=== PATIENT | female | born 1940 | race Caucasian/White ===

== ENCOUNTER 2019-09-05 16:51 | Inpatient (IN) | payer MEDICARE, SELFPAY ==
--- NOTE | ~2019-09-05 | XR_ITS ---
EXAMINATION: XR hip LT min 3V w AP pelvis DATE: 09/05/2019 17:37 INDICATION: Left hip pain. Fall. TECHNIQUE: An anteroposterior view of the pelvis and 3 views of left hip were obtained. COMPARISON: Pelvis and left hip radiographs 05/24/2019 FINDINGS: There is a subcapital fracture of left femoral neck. The distal fracture fragment demonstra tomer impaction and 6 degrees valgus angulation. There is mild osteoarthritis of the hips. There is mod erate lumbar spondylosis. IMPRESSION: 1. Subcapital fracture of left femoral neck. 2. Mild osteoarthritis of the hips. Reviewed, dictated and finalized at location A.
--- NOTE | ~2019-09-05 | XR_ITS ---
EXAMINATION: XR chest 1V portable DATE: 09/05/2019 17:37 INDICATION: Fall. TECHNIQUE: A single frontal view of the chest was obtained. COMPARISON: Chest 2 views 05/24/2019 FINDINGS: There is mild atelectasis at the lung bases. No pleural effusion or pneumothorax. The heart size is normal. IMPRESSION: 1. Mild atelectasis at the lung bases. Reviewed, dictated and finalized at location A.
--- NOTE | ~2019-09-05 | CT_ITS ---
EXAMINATION: CT brain wo con DATE: 09/05/2019 17:29 INDICATION: Fall. TECHNIQUE: Computed tomography (CT) of the head was performed without intravenous contrast. The mA wa s adjusted according to patient size. Iterative reconstruction technique was employed. The dose-lengt h product was 605.33 mGy-cm. COMPARISON: Head CT 05/24/2019 FINDINGS: There are scattered areas of low attenuation in the cerebral white matter. There are old in farcts in the left parietal lobe. There is an old lacunar infarct in the left basal ganglia. There is no intracranial hemorrhage, acute infarction, or abnormal intracranial mass lesion. The ventricles a re normal in size. There are likely changes of ocular lens replacement surgeries. There is mild mucos al thickening in the ethmoid sinuses. There is a left otomastoid effusion. IMPRESSION: 1. 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 2. Unchanged moderate nonspecific cerebral white matter disease, which likely represents chronic smal l vessel ischemic disease. Reviewed, dictated and finalized at location A. IMPRESSION: 1. 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 2. Unchanged moderate nonspecific cerebral white matter disease, which likely r epresents chronic small vessel ischemic disease.
[2019-09-05 16:57] VITALS: BP 154/92; PULSE 76; RESP 16; TEMP 37.2; O2SAT 97
--- NOTE | 2019-09-05 17:09 | ED.GENADULT ---
HPI - General Adult General Chief complaint: Extremity Injury, Lower Stated complaint: HIP FX Time Seen by Provider: 09/05/19 16:59 Source: patient Mode of arrival: ambulatory Limitations: no limitations History of Present Illness HPI narrative: Patient is a 78-year-old female who presents to emergency department for evaluation of left hip fracture that was found on imaging patient had a ground-level fall that was reportedly witnessed patient was helping an individual and fell backwards patient reportedly did not hit the head. Patient with unsteady gait was sent and after found to have a hip fracture. Patient on arrival is in the room in no distress denying any pain but is a limited historian secondary to dementia Related Data Home Medications Medication Instructions Recorded Confirmed alprazolam 09/05/19 cholecalciferol (vitamin D3) 1,000 unit PO DAILY 09/05/19 09/05/19 [Vitamin D3] escitalopram oxalate mg 09/05/19 galantamine mg PO 09/05/19 losartan 09/05/19 omega [id number]-fish oil [Fish Oil] cap PO 09/05/19 quetiapine 09/05/19 Allergies Allergy/AdvReac Type Severity Reaction Status Date / Time morphine Allergy Unknown Verified 10/26/18 14:46 prednisone Allergy Unknown Verified 10/09/15 08:34 Sulfa (Sulfonamide Allergy Unknown Verified 10/09/15 08:34 Antibiotics) Review of Systems Review of Systems: Narrative: Limited secondary to clinical condition PMFSH Past Medical History Medical History BCC (basal cell carcinoma of skin) Dementia HLD (hyperlipidemia) HTN (hypertension) Ovarian cancer Rectal polyp UTI (urinary tract infection) Surgical History Surgical History H/O: hysterectomy Hx of cholecystectomy Hx of tonsillectomy Family History Family History (Updated 09/19/18 @ 12:11 by DOCTOR UNKNOWN) Mother Carcinoma of colon Family history of lung cancer Father Family history of heart disease in male family member before age 55 Grandparent Family history of heart disease in male family member before age 55 Other Family history of cardiovascular disease Family history of malignant neoplasm Family history of malignant neoplasm of thyroid Hypertension Social History Social History Smoking status: Never smoker Second hand tobacco smoke exposure: No Alcohol intake: never Gender identity (if verbalized by the patient): Female Exam Narrative: Exam Narrative: GENERAL: Well-appearing, well-nourished, and in no acute distress. HEAD: Normocephalic, atraumatic. EYES: PERRLA and EOMI. ENT: Nares clear, no rhinorrhea or epistaxis. Mucous membranes moist. CHEST: Clear to auscultation. No respiratory distress. No wheezes rales or rhonchi HEART: Regular rate and rhythm. No murmur heard. Normal peripheral pulses. ABDOMEN: Soft, nontender, nondistended EXTREMITIES: Pelvis palpated nontender stable SKIN: Warm, dry, no rash. NEURO: No focal deficits. Alert and oriented to person and reason for being in the emergency department PSYCH: Normal mood and affect. Course Course Emergency Course: Patient in the room aware of case findings treatment plan and diagnosis Consultations Consultation #1: Discussed case with hospitalist and orthopedic surgery who have accepted the patient Time: 18:45 Vital Signs Vital signs: Vital Signs Temperature 99.0 F 09/05/19 16:57 Pulse Rate 76 09/05/19 16:57 Respiratory Rate 16 09/05/19 16:57 Blood Pressure 154/92 H 09/05/19 16:57 Pulse Oximetry 97 09/05/19 16:57 Temperature 99.0 F 09/05/19 16:57 Pulse Rate 76 09/05/19 16:57 Respiratory Rate 16 09/05/19 16:57 Blood Pressure 154/92 H 09/05/19 16:57 Pulse Oximetry 97 09/05/19 16:57 Medical Decision Making MDM Narrative Medical decision making narrative: Patient will be placed in h
[2019-09-05 17:21] LABS: Basophils Percent Auto 0.3 % (0.2-1.2); Eosinophils Absolute Auto 0.4 K/mm3 (0-0.3); Eosinophils Percent Auto 3.7 % (0-4.4); Hematocrit 39.3 % (37.0-47.0); Hemoglobin 12.8 g/dL (12.0-15.0); Immature Granulocyte Absolute 0.02 K/mm3 (0.00-0.031); Immature Granulocyte Percent A 0.2 % (0-0.5); Immature Platelet Fraction Pct 4.4 % (0.9-11.2); Lymphocytes Absolute Auto 1.44 K/mm3 (0.9-3.2); Lymphocytes Percent Auto 14.2 % (18.3-44.2); Mean Corpuscular HGB Conc 32.6 g/dl (32-36); Mean Corpuscular Hemoglobin 30.9 pg (26-34); Mean Corpuscular Volume 94.9 fl (80-100); Mean Platelet Volume 10.9 fl (7.4-10.4); Monocytes Absolute Auto 1.4 K/mm3 (0.1-0.6); Monocytes Percent Auto 13.4 % (2.6-8.5); Neutrophils Absolute Auto 6.9 K/mm3 (1.3-6.7); Neutrophils Percent Auto 68.2 % (45.5-73.1); Platelet Count Result 106 k/mm3 (150-375); Red Blood Count 4.14 M/mm3 (4.2-5.4); Red Cell Distribution Width 12.6 % (11.5-14.5); White Blood Count 10.1 K/mm3 (4.5-10.0)
[2019-09-05 17:30] LABS: Blood Urea Nitrogen 17 mg/dL (7-17); Calcium 9.4 mg/dL (8.4-10.2); Carbon Dioxide 28 mmol/L (22-30); Chloride 105 mmol/L (98-107); Estimated Glomerular Filt Rate > 60; Glucose 104 mg/dL (65-105); Sodium 136 mmol/L (137-145)
[2019-09-05] MEDS: SODIUM CHLORIDE 0.9% IV 500 ML 999 ML IV CONT (17:40)
[2019-09-05 18:04] LABS: Add Urine Microscopic? YES; Appearance Urine Clear (Clear); Bilirubin Urine Negative (Negative); Blood Urine Negative (Negative); Color Urine Straw (Yellow); Glucose Urine UA Negative (Negative); Ketones Urine Negative (Negative); Leukocyte Esterase Ur Negative LEU/UL (Negative); Nitrate Urine Negative (Negative); Protein Urine Negative (Negative); RBC Urine 0-2 /hpf (0-2); Specific Grav Ur 1.009 (1.001-1.035); Squamous Epithelial Cell Urine Rare /hpf (Few); WBC Urine 0-3 /hpf
[2019-09-05 18:23] VITALS: BP 156/71; PULSE 65; RESP 18; O2SAT 93
--- NOTE | 2019-09-05 18:57 | PC.NURSE ---
PT BECOMING AGITATED AND RESTLESS. TRYING TO GET OUT OF BED AND PULLING AT GOWN AND BLANKETS. TRYING TO REORIENT PATIENT. SON AT BEDSIDE.
--- NOTE | 2019-09-05 19:00 | PC.NURSE ---
PROVIDER AND CHARGE NURSE MADE AWARE OF PATIENT ORIENTATION STATUS.
--- NOTE | 2019-09-05 20:30 | ADMGEN ---
This patient, Lala Lopez, was admitted to [facility] Surg Room 307-01. Patient/family oriented to hospital policies and general routines including ID bracelet, bed and alarms, visiting hours, pain management, procedures, bathroom and other care routines, personal items, smoking policy, room service/diet, and visiting hours. Valuables list has been completed. Information on how to activate the Rapid Response Team has been discussed. Patient/Family are encouraged to report perceived risks to care and to ask questions if they do not understand what they are told or what they should do.
[2019-09-05 20:35] VITALS: BP 135/68; PULSE 56; RESP 18; TEMP 36.9; O2SAT 96; BMI 28.8
[2019-09-05] MEDS: LACTATED RINGERS 1,000 ML 75 ML IV CONT (20:39)
--- NOTE | 2019-09-05 21:58 | PM.IMHP ---
H&P: HPI History of Present Illness Chief complaint: LEFT HIP FRACTURE Narrative: Date and time of patient contact: 09/05/2019 at 10:10 p.m. Lala Lopez is a 78 year old female with past medical history of hypertension and dementia who presented to the ER from [facility] after an outpatient x-ray demonstrated. The patient had an unwitnessed fall on 09/04/2019. The patient had been up and ambulating without difficulty but intermediate staff noted that the patient's gait was unsteady at which time an x-ray was obtained. Patient was subsequently sent into the ER for evaluation she had a chest x-ray demonstrated atelectasis at the bases, CT scan of the head demonstrating old infarcts in the left parietal lobe and left basal ganglia, and a repeat pelvis x-ray confirming subcapital fracture left femoral neck. The patient cannot provide me with any history she is only alert oriented to self. She opens her eyes to name and will stick her tongue out and told to do so. She will follow simple commands. She would not speak to me much. Review of Systems Review of Systems: ROS unobtainable: unobtainable due to mental status PMFSH Past Medical History Medical History (Updated 09/06/19 @ 03:51 by Brittaney Mann DO) BCC (basal cell carcinoma of skin) Dementia HLD (hyperlipidemia) HTN (hypertension) Ovarian cancer 2000 status post hysterectomy with bilateral salpingo-oophorectomy and chemotherapy UTI (urinary tract infection) Surgical History Surgical History (Updated 09/05/19 @ 22:07 by Brittaney Mann DO) Enterostomy To retrieve gallstone that was causing small bowel obstruction March 2011 History of hysterectomy for cancer Due to ovarian cancer in 2000 Hx of cholecystectomy Hx of tonsillectomy Normal colonoscopy The patient had a distant history of colon polyps but her most recent colonoscopy in 2014 was unremarkable Family History Family History (Updated 09/05/19 @ 22:46 by Carol Ann Goetz RN) Mother Lung cancer Carcinoma of colon Father Heart disease Hypertension Daughter Thyroid cancer Social History Social History (Updated 09/06/19 @ 03:52 by Brittaney Mann DO) Social History: Primary care physician: Dr. Eliot Reeves (per intermediate records) Code status: DNR Smoking status: Never smoker Second hand tobacco smoke exposure: No Alcohol intake: never Substance use: never Living arrangements: intermediate Additional living arrangements comments: Patient resides at [facility]. She is . 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 Gender identity (if verbalized by the patient): Female Spiritual care concerns: No Agree to blood products: Yes Meds Home Medications and Allergies Home Medications Medication Instructions Recorded Confirmed Type alprazolam 0.5 mg PO Q6H PRN 09/05/19 09/05/19 History cholecalciferol (vitamin D3) 1,000 unit PO DAILY 09/05/19 09/05/19 History [Vitamin D3] escitalopram oxalate 20 mg PO DAILY 09/05/19 09/05/19 History galantamine 24 mg PO DAILY 09/05/19 09/05/19 History losartan 50 mg PO DAILY 09/05/19 09/05/19 History omega-3 fatty acids-fish oil [Fish 2 cap PO DAILY 09/05/19 09/05/19 History Oil] Allergies Allergy/AdvReac Type Severity Reaction Status Date / Time morphine AdvReac Intermediate Agitated Verified 09/05/19 22:17 Vital Signs Vital Signs - 24 hr 09/05/19 16:57 09/05/19 18:23 09/05/19 20:35 Temperature 99.0 F 98.4 F Pulse Rate 76 65 56 L Respiratory Rate 16 18 18 Blood Pressure 154/92 H 156/71 H 135/68 Pulse Oximetry 97 93 96 Exam Narrative: Exam Narrative: PHYSICAL EXAM: WEIGHT 71.5 kg BMI 28.8 General: No acute distress, well-developed well-nourished, elderly HEENT: Mucous membranes are tacky, no oral pharyngeal erythema, no s
[2019-09-06] VITALS: BP 152/69; PULSE 67; RESP 18; TEMP 36.8; O2SAT 96
--- NOTE | 2019-09-06 | ECG_ITS ---
Measurements Intervals [employer] Rate: 61 P: 60 MI: 133 QRS: 14 QRSD: 91 T: 62 QT: 413 QTc: 419 Interpretive Statements SINUS RHYTHM VENTRICULAR TRIGEMINY ABNORMAL ECG Electronically Signed On 09-06-2019 9:16:33 CDT by Allen Perez D.O.
[2019-09-06 06:00] VITALS: BP 127/77; PULSE 60; RESP 18; TEMP 36.7; O2SAT 95
[2019-09-06 06:03] LABS: Basophils Percent Auto 0.4 % (0.2-1.2); Eosinophils Absolute Auto 0.3 K/mm3 (0-0.3); Eosinophils Percent Auto 4.7 % (0-4.4); Hematocrit 38.3 % (37.0-47.0); Hemoglobin 12.6 g/dL (12.0-15.0); Immature Granulocyte Absolute 0.02 K/mm3 (0.00-0.031); Immature Granulocyte Percent A 0.3 % (0-0.5); Immature Platelet Fraction Pct 4.7 % (0.9-11.2); Lymphocytes Absolute Auto 1.15 K/mm3 (0.9-3.2); Lymphocytes Percent Auto 15.8 % (18.3-44.2); Mean Corpuscular HGB Conc 32.9 g/dl (32-36); Mean Corpuscular Hemoglobin 31.2 pg (26-34); Mean Corpuscular Volume 94.8 fl (80-100); Mean Platelet Volume 10.9 fl (7.4-10.4); Monocytes Percent Auto 13.8 % (2.6-8.5); Neutrophils Absolute Auto 4.7 K/mm3 (1.3-6.7); Platelet Count Result 97 k/mm3 (150-375); Red Blood Count 4.04 M/mm3 (4.2-5.4); Red Cell Distribution Width 12.3 % (11.5-14.5); White Blood Count 7.3 K/mm3 (4.5-10.0)
[2019-09-06 06:04] LABS: Blood Urea Nitrogen 12 mg/dL (7-17); Calcium 8.9 mg/dL (8.4-10.2); Carbon Dioxide 27 mmol/L (22-30); Chloride 109 mmol/L (98-107); Estimated CRCL calculation 47 ml/min; Estimated Glomerular Filt Rate > 60; Glucose 103 mg/dL (65-105); Potassium 3.7 mmol/L (3.4-5.0); Sodium 138 mmol/L (137-145)
--- NOTE | 2019-09-06 08:14 | PM.IMPN ---
Progress Note: A&P Assessment and Plan (1) Subcapital fracture of neck of left femur: Code(s): S72.012A - Unspecified intracapsular fracture of left femur, initial encounter for closed fracture Status: Acute Assessment and Plan: Patient does not have many risk factors as far as risk for cardiovascular complications other than HTN and HLD. However, given her moderate-severe dementia and that the patient continuously tries to get out of bed, this will make the postoperative interval a challenge. Daughter confirms that even when she had a fractured radius last year, she had a difficult time following direction and keeping arm in sling Dr. Thomas is consulted and input is much appreciated Will await further rec per Dr. Thomas (2) Bradycardia: Code(s): R00.1 - Bradycardia, unspecified Status: Acute Assessment and Plan: Given that the patient is on medications that can cause QT prolongation she has some mild bradycardia, EKG will be done today. Previous EKG done in 05/2019 shows normal EKG with QTc of 428 EKG to be done today Subjective Date/time seen: 09/06/19 08:14 Interval history: Patient is a 78 yo F with history of HLD, HTN, ovarian cancer and dementia (mod-severe per patient's daughter/HASEEBJada) who is here for evaluation/treatment of left hip fracture. Patient is pleasantly confused this morning and not complaining of any pain. She is A&Ox2 but primarily gives nonsensical answers. ROS and History unobtainable due to chronic mental condition. Spoke with patient's daughter/POA, Jada, over the phone this morning who states that this is baseline for her. She confirms she had an unwitnessed fall while at [facility]. She tells me that she had a fall last year and injured her right arm at that time and had a difficult time keeping her arm immobilized/slinged. When the patient is questioned, she denies cp/palpitations, fevers, sob/cough, abdominal pain, hip pain, although again, her history is unreliable given her dementia. Review of Systems Review of Systems: ROS unobtainable: unobtainable due to mental status (baseline dementia) Exam Narrative: Exam Narrative: Patient sitting upright in bed at time of visit; sitter in room Const: General: cooperative, comfortable, no acute distress, well developed, alert, awake and confusion (pleasantly) Nutritional Appearance: well nourished Orientation/consciousness: oriented to person and oriented to place (hospital) HENMT: Head: normocephalic and atraumatic (scabbing noted on left temporal region of head, slight ecchymosis) General nose exam: Normal nares present Face and sinus: face symmetric Mouth: No lip normal (dry, crusting skin on lips) and Yes tongue normal (moist, symmetric) Teeth and gingiva: fair dentition Throat: posterior oropharynx normal and uvula midline Eyes: General: appearance normal, both eyes and all related structures Pupils: Equal, round and reactive pupils present Neck: Neck: trachea midline and supple Resp: Effort & Inspection: normal respiratory effort Auscultation: clear to auscultation bilaterally Cardio: Rate: regular rate Rhythm: regular rhythm Heart sounds: no murmurs GI: Inspection: non-distended and scar (midline scar noted proximal to umbilicus to suprpubic area) GI Palp: No abdominal tenderness and Yes Soft to palpation Auscultation: normal bowel sounds and normoactive bowel sounds Skin: General skin exam: normal color Other: various locations of scabbing noted on skin of UE/LE Neuro: General: oriented to person, oriented to place (hospital), moves all extremities and no focal motor deficits Sensory Exam: normal sensation Extrem: Right lower extremity: no edema Left lower extremity: no edema Other: NTTP b/l calves Slight ecchymosis noted on left hip; slight TTP Psych: Mental Status: mental status grossly normal Affect: n
[2019-09-06] MEDS: ESCITALOPRAM OXALATE 10 MG TABLET 20 MG PO (09:32)
[2019-09-06] MEDS: LOSARTAN POTASSIUM 50 MG TABLET PO (09:33)
[2019-09-06] MEDS: LACTATED RINGERS 1,000 ML 75 ML IV CONT (09:39)
[2019-09-06] MEDS: ALPRAZOLAM 0.5 MG TABLET PO (12:51)
--- NOTE | 2019-09-06 13:18 | PM.CNOR ---
Assessment and Plan Assessment and plan (1) Subcapital fracture of neck of left femur: Qualifiers: Encounter type: initial encounter Fracture type: closed Qualified Code(s): S72.012A - Unspecified intracapsular fracture of left femur, initial encounter for closed fracture Code(s): S72.012A - Unspecified intracapsular fracture of left femur, initial encounter for closed fracture Status: Acute Assessment and Plan: 78-year-old female with an acute left subcapital femoral neck fracture. Over the course of the past year she has had dramatic decrease in her cognitive capabilities according to her daughter and son. After discussing the overall situation with them I believe the most prudent course at this point is going to be non operative treatment with protected weight-bearing. This pain is essentially no weight on the left leg and transfers only on the right foot. Some therapy could be done with her upper extremities. I will plan on re-x-ray the left hip in one week with a mobile x-ray service and then make further recommendations at that point. The patient's daughter and son are in agreement with this approach. Thank you for the consultation. History of Present Illness HPI Consult date: 09/06/19 Consult reason: fracture Chief complaint: LEFT HIP FRACTURE Narrative: 78-year-old female who was admitted with a left subcapital femoral neck fracture. She resides at a memory care unit in [place], [place]. She apparently had an unwitnessed fall within the past couple of days and was unable walk. X-ray was obtained there which demonstrated femoral neck fracture. She was brought to the ER and re-x-rayed here confirming the fracture. She is confused to the point of being able to provide no reasonable history. I did speak with her daughter and son earlier today. Her daughter is her POA. [facility] Past Medical History Medical History BCC (basal cell carcinoma of skin) Dementia HLD (hyperlipidemia) HTN (hypertension) Ovarian cancer 2000 status post hysterectomy with bilateral salpingo-oophorectomy and chemotherapy Right radial fracture UTI (urinary tract infection) Surgical History Surgical History Enterostomy To retrieve gallstone that was causing small bowel obstruction March 2011 History of hysterectomy for cancer Due to ovarian cancer in 2000 Hx of cholecystectomy Hx of tonsillectomy Normal colonoscopy The patient had a distant history of colon polyps but her most recent colonoscopy in 2014 was unremarkable Family History Family History Mother Lung cancer Carcinoma of colon Father Heart disease Hypertension Daughter Thyroid cancer Social History Social History Social History: Primary care physician: Dr. Eliot Reeves (per senior living records) Code status: DNR Smoking status: Never smoker Second hand tobacco smoke exposure: No Alcohol intake: never Substance use: never Living arrangements: senior living Additional living arrangements comments: Patient resides at [facility]. She is . 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 Gender identity (if verbalized by the patient): Female Spiritual care concerns: No Agree to blood products: Yes Meds Home Medications and Allergies Home Medications Medication Instructions Recorded Confirmed Type alprazolam 0.5 mg PO Q6H PRN 09/05/19 09/05/19 History cholecalciferol (vitamin D3) 1,000 unit PO DAILY 09/05/19 09/05/19 History [Vitamin D3] escitalopram oxalate 20 mg PO DAILY 09/05/19 09/05/19 History galantamine 24 mg PO DAILY 09/05/19 09/05/19 History losartan 50 mg PO DAILY
[2019-09-06 14:00] VITALS: BP 119/67; PULSE 98; RESP 20; TEMP 37; O2SAT 97
--- NOTE | 2019-09-06 14:29 | PM.DS ---
DS: Diagnosis Admitting Diagnosis Admitting Diagnosis: Unspecified intracapsular fracture of left femur, initial encounter for closed fracture Discharge Diagnosis (1) Subcapital fracture of neck of left femur: Qualifiers: Encounter type: initial encounter Fracture type: closed Qualified Code(s): S72.012A - Unspecified intracapsular fracture of left femur, initial encounter for closed fracture Code(s): S72.012A - Unspecified intracapsular fracture of left femur, initial encounter for closed fracture Status: Acute Assessment and Plan: Patient does not have many risk factors as far as risk for cardiovascular complications other than HTN and HLD. However, given her moderate-severe dementia and that the patient continuously tries to get out of bed, this will make the postoperative interval a challenge. Daughter confirms that even when she had a fractured radius last year, she had a difficult time following direction and keeping arm in sling Dr. Thomas is consulted and input is much appreciated Per Dr. Thomas, no surgery at this point; conservative treatment for now She will have xray in 1 week Will do 325 mg Aspirin daily for DVT prophylaxis as patient high fall risk for falls for anticoagulation (2) Bradycardia: Code(s): R00.1 - Bradycardia, unspecified Status: Acute Assessment and Plan: EKG shows ventricular trigeminy, sinus rhythm with QTc 419 DS: Summary Hospital Course Reason for hospitalization: left hip fracture Hospital Course: Patient is a 78 yo F with history of HTN and dementia who presented to the ER from [facility] on 09/04 after an outpatient xray demonstrated a left hip fracture. Patient had an unwitnessed fall on 09/03. Patient had ambulated without difficulty, however, staff noted that her gait was unstady and an xray was obtained. Patient subsequently sent to ER where repeat pelvis xray confirmed left hip fracture. Please see H&P Presenting VS: Temp Pulse Resp BP Pulse Ox 99.0 F 76 16 154/92 H 97 on RA 09/05/19 16:57 09/05/19 16:57 09/05/19 16:57 09/05/19 16:57 09/05/19 16:57 Presenting Pertinent labs: Lab work grossly unremarkable Micro: MRSA screen negative Imaging: Head CT 09/05/19 17:32 IMPRESSION: 1. 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 2. Unchanged moderate nonspecific cerebral white matter disease, which likely represents chronic small vessel ischemic disease. Chest X-Ray 09/05/19 17:47 IMPRESSION: 1. Mild atelectasis at the lung bases. Hip/Pelvis X-Ray 09/05/19 17:48 IMPRESSION: 1. Subcapital fracture of left femoral neck. 2. Mild osteoarthritis of the hips. ECG: Interpretive Statements SINUS RHYTHM VENTRICULAR TRIGEMINY ABNORMAL ECG Patient was admitted to the hospitalist service for further evaluation for left hip fracture; Dr. Thomas ([facility]) was consulted for further input. After discussion with her daughter/POA and son, it was elected that patient would not be undergoing operative treatment and that conservative treatment with protected weight-bearing would be the best course of action given her dramatic decrease in her cognitive capabilities reported by her daughter and son; both were in agreement with this plan. It was apparent that her pain was reasonably controlled during her hospital course. Plan was for her to [facility] to [facility] for further care. She was to take 325 mg aspirin daily during recovery. Follow up xray was to be performed in 1 week and patient to follow up with Ortho. Patient was hemodynamically stable and in improved condition for discharge on 09/05. Status at Discharge Overall status at discharge: patient is progressing back to baseline Time Spent with Patient Time attestation: Total time spent providing and/or coordinating discharge services: 40 minutes Time spent: Shannon
== END 2019-09-06 16:00 | DRG 536 ==
LOC: ANHED 19:21 → ANH3MEDSUR 19:57
PROVIDERS: Emergency Medicine Emergency Medical Services; Admitting Provider Internal Medicine; Emergency Provider Emergency Medicine; PCP Internal Medicine; Visit Provider Physician Assistant
DX: S72.012A Unspecified intracapsular fracture of left femur, initial encounter for closed fracture (principal); W19.XXXA Unspecified fall, initial encounter; I10 Essential (primary) hypertension; E78.5 Hyperlipidemia, unspecified; F03.90 Unspecified dementia, unspecified severity, without behavioral disturbance, psychotic disturbance, mood disturbance, and anxiety; R00.1 Bradycardia, unspecified; Z66 Do not resuscitate; Z85.828 Personal history of other malignant neoplasm of skin; Z85.43 Personal history of malignant neoplasm of ovary; Z90.710 Acquired absence of both cervix and uterus; Z90.49 Acquired absence of other specified parts of digestive tract; Z90.722 Acquired absence of ovaries, bilateral
CPT/HCPCS: 36415; 70450; 71045; 73502; 80048; 81001; 85025; 85055; 87081; 93005; 96365; 99285; A9270; J0131; J7040; J7120

== ENCOUNTER 2020-05-13 11:48 | Outpatient (RCR) | payer MEDICARE, SELFPAY | END 2020-07-28 11:28 | disposition home or self-care (01) | LOC: ANHWOC 11:48 | PROVIDERS: PCP Internal Medicine; Visit Provider Podiatrist Foot & Ankle Surgery | DX: L97.519 Non-pressure chronic ulcer of other part of right foot with unspecified severity (principal) | CPT/HCPCS: 99212; G0463 ==

== ENCOUNTER 2020-05-18 04:47 | Emergency (ER) | payer MEDICARE, SELFPAY ==
[2020-05-18 04:40] VITALS: BP 204/79; PULSE 64; RESP 18; TEMP 36.2; O2SAT 99
[2020-05-18 04:50] VITALS: BP 181/72; PULSE 60; RESP 20; O2SAT 99
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
--- NOTE | 2020-05-18 04:56 | PC.NURSE ---
called [facility] to request transport. ETA [id number]
[2020-05-18 05:06] VITALS: BP 180/72; PULSE 60; RESP 18; O2SAT 98
--- NOTE | 2020-05-18 05:11 | PC.NURSE ---
[facility] here.
== END 2020-05-18 05:21 ==
LOC: ANHED 04:57
PROVIDERS: Emergency Provider Emergency Medicine; PCP Internal Medicine
DX: F03.91 Unspecified dementia, unspecified severity, with behavioral disturbance (principal); E78.5 Hyperlipidemia, unspecified; I10 Essential (primary) hypertension; Z66 Do not resuscitate; Z85.41 Personal history of malignant neoplasm of cervix uteri; Z85.828 Personal history of other malignant neoplasm of skin; Z87.440 Personal history of urinary (tract) infections
CPT/HCPCS: 99281

== ENCOUNTER → 2020-07-21 07:26 | Outpatient (REF) | payer MEDICARE, SELFPAY | LOC: ANHLAB 07:26 | PROVIDERS: PCP Internal Medicine; Visit Provider Nurse Practitioner | DX: C44.319 Basal cell carcinoma of skin of other parts of face (principal) | CPT/HCPCS: 88305; 88331 ==

== ENCOUNTER → 2020-09-29 06:55 | Outpatient (REF) | payer MEDICARE, SELFPAY | LOC: ANHLAB 06:55 | PROVIDERS: PCP Internal Medicine; Visit Provider Nurse Practitioner | DX: C44.319 Basal cell carcinoma of skin of other parts of face (principal) | CPT/HCPCS: 88305; 88331; 88332 ==

== ENCOUNTER 2021-07-27 14:18 | Emergency (ER) | payer MEDICARE, SELFPAY ==
--- NOTE | ~2021-07-27 | CT_ITS ---
EXAMINATION: CT brain wo con DATE: 07/27/2021 17:42 INDICATION: Confusion post fall TECHNIQUE: Computed tomography (CT) of the head was performed without intravenous contrast. Sagittal and coronal reconstructions were performed. The mA was adjusted according to patient size. Iterative reconstruction technique was employed. The dose-length product was 605.33 mGy-cm. COMPARISON: head CT dated 09/05/2019 FINDINGS: Hyperostosis from talus. No fracture. Assessment is moderately limited by motion artifact. Small focu s of encephalomalacia in the left parietal lobe consistent with old infarct. There is moderate to sev ere scattered white matter hypoattenuation consistent with chronic small vessel ischemic disease. No acute intracranial hemorrhage, acute infarction or abnormal extra axial fluid collection. Ventricles are normal and symmetric. No mass/mass effect. Changes of bilateral intraocular lens replacement. Ri ght mastoid is hypopneumatized. The left mastoid air cells are normal. The visualized portions of the paranasal sinuses are clear. IMPRESSION: 1. Evaluation moderately limited by motion artifact most prominent at the level of the orbits and mid brain. 2. No evident fracture or acute intracranial process. 3. 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 4. Age-related changes including moderate volume loss and moderate to severe scattered white matter h ypoattenuation consistent with chronic small vessel schema disease. Reviewed, dictated and finalized at location A. CAR MAKE READY MECHANIC IMPRESSION: 1. Evaluation moderately limited by motion artifact most prominent at the level of the orbits and midbrain. 2. No evident fracture or acute intracranial process. 3. 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 4. Age-related changes including moderate volume loss and moderate to severe sc attered white matter hypoattenuation consistent with chronic small vessel schem a disease.
--- NOTE | ~2021-07-27 | CT_ITS ---
EXAMINATION: CT thoracic lumbar wo con DATE: 07/27/2021 17:42 INDICATION: Back pain post fall TECHNIQUE: Computed tomography (CT) of the thoracic and lumbar spine was performed without intravenou s contrast. Automated exposure control and iterative reconstruction technique were employed. The dose -length product was 1382.08 mGy-cm. COMPARISON: CT abdomen and pelvis dated 03/10/2011 FINDINGS: Thoracic spine: Mild thoracic spondylosis. Vertebral body heights are normal. Multilevel moderate disc height loss a t C4-C5 through C6-C7 and at T3-T4 through T9-T10. Mild disc height loss at the remaining thoracic le vels. Small disc osteophyte complexes resulting in mild central canal stenosis at C5-C6 and C6-C7. No central canal stenosis and thoracic spine. There is mild to moderate multilevel bilateral thoracic f acet osteoarthritis which contributes to minimal to mild neural foraminal stenosis at a few levels in both the left and right greatest on the left at T6-T7. There is some respiratory motion which limits evaluation of the ribs. Nondisplaced acute appearing rib fractures are seen at the posterior right 8 th-11th ribs near the costovertebral articulations as well as at the posterolateral right 8th and 9th ribs. Scattered atelectasis in the bilateral lower lungs. Trace right pleural effusion. No pulmonary edema or pneumothorax. Heart size is normal. Atherosclerotic coronary artery calcifications. No pericardial effusion. Calcified mediastinal and right hilar lymph nodes consistent with old granulomatous diseas e. No pathologically enlarged thoracic lymphadenopathy. Thoracic aorta is normal in caliber. Lumbar spine: 10 degree lumbar dextroscoliosis. Sagittal alignment is normal. There is a small superior endplate co mpression fracture on the left side of L2 with <20% vertebral body height loss. Although new since 11 has a chronic appearance with no lucent fracture plane, discontinuous or sharply angulated cortex, linear sclerosis in the underlying vertebral body or inflammatory change in the paravertebral fat to suggest acute fracture. Vertebral body heights are otherwise normal. Lucent hemangioma with thickene d internal trabecula at L5. Severe disc height loss at L2-L3. Moderate disc height loss at L3-L4 and L5-S1. Mild disc height loss at L4-L5. There appear to be disc bulges at L2-L3 through L5-S1 result i n multilevel mild central canal stenosis. Severe facet osteoarthritis on the right at L5-S1. Otherwis e mild to moderate multilevel bilateral lumbar facet osteoarthritis. There is moderate bilateral neur al foraminal stenosis at L2-L3 through L5-S1. Mild neural from stenosis on the left at L1-L2. Liver, gallbladder, spleen, pancreas, bilateral adrenal glands and kidneys are normal. Moderate to la rge amount of stool scattered throughout the colon. Postoperative change along the anterior abdominal wall. There are loops of nonobstructed small bowel extending into a couple ventral hernias. Bladder is normal. The uterus is not identified and has likely been surgically resected. There is calcified a therosclerosis of the aorta and many of the other arteries. No pathologically enlarged abdominal or p elvic lymphadenopathy. IMPRESSION: 1. A few nondisplaced posterior right 8th-11th rib fractures. Trace right pleural effusion. No pneumo thorax. 2. Moderate thoracic and moderate to severe lumbar spondylosis. No acute osseous abnormality in the t horacic or lumbar spine. 3. Loops of nonobstructed small bowel extending into a couple ventral hernias. Reviewed, dictated and finalized at location A. PRESIDENT UNDERWRITING IMPRESSION: 1. A few nondisplaced posterior right 8th-11th rib fractures. Trace right pleur al effusion. No pneumothorax. 2. Moderate thoracic and moderate to severe lumbar spo
--- NOTE | ~2021-07-27 | XR_ITS ---
XR chest 1V portable DATE: 07/27/2021 15:28 INDICATION: Fall. Confusion. TECHNIQUE: Portable AP chest on July 27, 2021 at 1519 hours COMPARISON: 09/05/2019 portable AP chest at 1735 hours FINDINGS: Heart size appears normal. There is aortic arch calcification. No hilar or mediastinal enla rgement. No pulmonary infiltrate or consolidation, pleural effusion or pulmonary vascular congestion or pneumothorax is detected. IMPRESSION: No active cardiopulmonary disease Aortic atherosclerosis Reviewed, dictated and finalized at location B. DE SALES MANAGER
[2021-07-27 14:20] VITALS: PULSE 65; RESP 18; TEMP 36.3; O2SAT 95
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
[2021-07-27] MEDS: LORazepam INJ (*CRX) 2 MG/ML VIAL 0.5 MG IM (14:44)
[2021-07-27] MEDS: HALOPERIDOL LACTATE 5 MG/ML VIAL 2.5 MG IM ×2 (14:45→16:49)
[2021-07-27] MEDS: diphenhydrAMINE HCl INJ 50 MG/ML VIAL 25 MG IM (14:45)
[2021-07-27 14:58] VITALS: BP 160/103
--- NOTE | 2021-07-27 14:59 | PC.NURSE ---
Pt very restless, scared and wanting to get out of bed. Pt placed on bed alarm
[2021-07-27 16:21] LABS: Basophils Absolute Auto 0.1 K/mm3 (0.0-0.1); Basophils Percent Auto 0.5 % (0.2-1.2); Eosinophils Absolute Auto 0.3 K/mm3 (0-0.3); Eosinophils Percent Auto 2.6 % (0-4.4); Hematocrit 34.1 % (37.0-47.0); Immature Granulocyte Absolute 0.07 K/mm3 (0.00-0.031); Immature Granulocyte Percent A 0.6 % (0-0.5); Immature Platelet Fraction Pct 6.5 % (0.9-11.2); Lymphocytes Absolute Auto 1.53 K/mm3 (0.9-3.2); Lymphocytes Percent Auto 13.8 % (18.3-44.2); Mean Corpuscular HGB Conc 32.3 g/dl (32-36); Mean Corpuscular Hemoglobin 32.7 pg (26-34); Mean Corpuscular Volume 101.5 fl (80-100); Mean Platelet Volume 11.1 fl (7.4-10.4); Monocytes Absolute Auto 1.1 K/mm3 (0.1-0.6); Monocytes Percent Auto 9.8 % (2.6-8.5); Neutrophils Absolute Auto 8.1 K/mm3 (1.3-6.7); Neutrophils Percent Auto 72.7 % (45.5-73.1); Platelet Count Result 133 k/mm3 (150-375); Red Blood Count 3.36 M/mm3 (4.2-5.4); Red Cell Distribution Width 12.3 % (11.5-14.5); White Blood Count 11.1 K/mm3 (4.5-10.0)
[2021-07-27 16:30] LABS: Anion Gap 4 mmol/L (8-16); Blood Urea Nitrogen 27 mg/dL (7-17); Calcium 8.6 mg/dL (8.4-10.2); Carbon Dioxide 31 mmol/L (22-30); Chloride 103 mmol/L (98-107); Estimated CRCL calculation 40 ml/min; Estimated Glomerular Filt Rate > 60; Glucose 91 mg/dL (65-110); Potassium 4.3 mmol/L (3.4-5.0); Sodium 138 mmol/L (137-145)
[2021-07-27] MEDS: LORazepam INJ (*CRX) 2 MG/ML VIAL 1 MG IM (16:47)
[2021-07-27 16:53] VITALS: BP 143/84; PULSE 81; RESP 18; O2SAT 98
[2021-07-27 17:10] LABS: Add Urine Microscopic? YES; Appearance Urine Clear (Clear); Bilirubin Urine Negative (Negative); Blood Urine Negative (Negative); Color Urine Yellow (Yellow); Glucose Urine UA Negative (Negative); Ketones Urine Negative (Negative); Leukocyte Esterase Ur Negative LEU/UL (Negative); Mucus Urine Rare /lpf; Nitrate Urine Negative (Negative); Protein Urine Negative (Negative); RBC Urine >75 /hpf (0-2); Specific Grav Ur 1.013 (1.001-1.035); Squamous Epithelial Cell Urine Rare /hpf (Few); Urobilinogen Urine Negative mg/dL (<2.0); WBC Urine 0-3 /hpf
[2021-07-27 17:36] LABS: SARS-CoV-2 RNA PCR Negative
[2021-07-27 18:34] VITALS: BP 172/52; PULSE 77; RESP 26; O2SAT 99
== END 2021-07-27 19:15 ==
PROVIDERS: Emergency Medicine; Emergency Provider Emergency Medicine; PCP Nurse Practitioner Family
DX: R45.1 Restlessness and agitation (principal); R45.6 Violent behavior; S22.41XA Multiple fractures of ribs, right side, initial encounter for closed fracture; R29.6 Repeated falls; Z20.822 Contact with and (suspected) exposure to COVID-19; F03.90 Unspecified dementia, unspecified severity, without behavioral disturbance, psychotic disturbance, mood disturbance, and anxiety; E78.5 Hyperlipidemia, unspecified; I10 Essential (primary) hypertension; Z85.41 Personal history of malignant neoplasm of cervix uteri; Z85.828 Personal history of other malignant neoplasm of skin; Z87.440 Personal history of urinary (tract) infections; Z66 Do not resuscitate; I70.0 Atherosclerosis of aorta; M47.816 Spondylosis without myelopathy or radiculopathy, lumbar region; M47.814 Spondylosis without myelopathy or radiculopathy, thoracic region; W19.XXXA Unspecified fall, initial encounter
CPT/HCPCS: 36415; 70450; 71045; 72128; 72131; 80048; 81001; 85025; 85055; 96372; 99284; C9803; J1200; J1630; J2060; U0003; U0005

== ENCOUNTER 2021-08-08 21:43 | Emergency (ER) | payer MEDICARE, SELFPAY ==
--- NOTE | ~2021-08-08 | CT_ITS ---
EXAMINATION: CT chest abdomen pelvis w con DATE: 08/09/2021 06:59 INDICATION: Pain after fall, anemia TECHNIQUE: Transaxial computed tomographic images of the chest, abdomen, and pelvis were obtained aft er the administration of 100 cc of Omnipaque 350 intravenous contrast. The dose-length product (DLP) was 618.58 mGy-cm. Automated exposure control and iterative reconstruction technique were employed. COMPARISON: 03/10/2011, 07/27/2021 FINDINGS: CHEST CT: Respiratory motion artifact limits the examination. There is mild dependent atelectasis. Small pleura l effusions are present, right greater than left. There are fractures of the right sixth through nint h ribs. There are segmental fractures of the right eighth and ninth ribs. The sixth and seventh rib f ractures appear new when compared to the prior examination. There is no pneumothorax. No pathological ly enlarged thoracic lymph nodes are identified. The heart size is normal. There is an age-indetermin ate compression fracture of T8 which is new since the recent comparison examination. ABDOMEN/PELVIS CT: Motion artifact limits the examination. The liver, spleen, pancreas, gallbladder, and adrenal glands are normal. There is moderate intrahepatic and extrahepatic biliary dilatation. There is a mildly hyp erattenuating 1.3 cm mass of the medial left kidney which does not demonstrate enhancement when tita red to the recent noncontrast CT, consistent with a proteinaceous cyst. The right kidney is unremarka ble. A moderate volume of colonic stool is present. There is calcified atherosclerosis of the aorta a nd many of the other arteries. No pathologically enlarged abdominal or pelvic lymph nodes are identif ied. There is severe lower lumbar spondylosis. A midline ventral hernia of the pelvis contains short segments of nonobstructed small bowel. IMPRESSION: 1. New T8 compression fracture with 25% loss of mid vertebral body height and new fractures of the ri ght sixth and seventh ribs. 2. Intrahepatic and extrahepatic biliary dilatation of unclear significance. Consider MRCP or ERCP. These findings and recommendations were discussed with Dr. Terri Gaming in the Emergency Departme at 0650 hours on 08/09/2021 by the [employer] Radiologist. Reviewed, dictated and finalized at location F. HT KITCHEN MANAGER IMPRESSION: 1. New T8 compression fracture with 25% loss of mid vertebral body height and n ew fractures of the right sixth and seventh ribs. 2. Intrahepatic and extrahepatic biliary dilatation of unclear significance. Co nsider MRCP or ERCP. These findings and recommendations were discussed with Dr. Terri Gaming in the Emergency Department at 0650 hours on 08/09/2021 by the [employer] Radiologist.
--- NOTE | ~2021-08-08 | XR_ITS ---
EXAMINATION: XR elbow RT min 3V EXAM DATE: 08/09/2021 01:41 INDICATION: Fall. Right elbow pain. TECHNIQUE: Right elbow frontal, lateral with flexion, and oblique projections obtained and reviewed. Comparison is made to prior examination from 11/10/2018. FINDINGS: Right elbow anterior humeral line intact. There is been interval healing of previously see n right radial head/neck fractures. There is mild right elbow osteoarthritis. No acute fracture suspe cted. IMPRESSION: 1. Old right radial fractures. 2. Mild osteoarthritis. Reviewed, dictated and finalized at location A. D SERVICE REPRESENTATIVE
--- NOTE | ~2021-08-08 | CT_ITS ---
EXAMINATION: CT brain wo con, CT cervical spine wo con EXAM DATE: 08/09/2021 00:06 INDICATION: fall, head injury. Altered mental status TECHNIQUE: Spiral CT of the head was performed without contrast. Axial, coronal and sagittal images were reviewed. Spiral CT of the cervical spine was performed without contrast. Axial images were rev iewed. Coronal and sagittal reformatted images were also reviewed. The dose-length product (DLP) fo r this examination was 1362.00 (accession [id number]), 143.73 (accession [id number]) mGy-cm. The exposure was tailored according to patient size, and iterative reconstruction (ASIR) was used as additional dose reduction technique. There is no prior study for comparison. FINDINGS: HEAD CT: Study is limited due to patient motion, patient was scanned twice. There is large posterio r scalp hematoma. No underlying calvarial fracture. There is no acute intraparenchymal hemorrhage. N o evidence of intraparenchymal brain mass lesion. No evidence of acute infarction. There is moderate periventricular and subcortical hypodensity, nonspecific but probably related to small vessel ischem ic disease. The There is moderate prominence of the sulci and ventricles related to cerebral atrophy . There is no mass effect or midline shift. There is no obstructive hydrocephalus suspected. Ther e are no extra-axial collections. There are no acute calvarial fractures. Patient has had bilateral ocular lens surgery. Nearly completely opacified right maxillary sinus, moderate bilateral ethmoid mucoperiosteal thickening. Small to moderate amount of fluid in the left maxillary sinus. Nasal bone fractures which are old and unchanged compared to prior study. Hyperostosis frontalis. CERVICAL CT: There is no evidence of acute cervical fracture. The odontoid process is intact. Pre-d ens space is normal. Prevertebral soft tissue is normal. There are no soft tissue abnormalities misha ntified. There is no disc space widening or traumatic vertebral body subluxation suspected. Moderate to severe cervical spondylosis. A detailed level by level evaluation of spondylosis can be added as addendum if requested. IMPRESSION: 1. Large posterior scalp hematoma without underlying fracture or definite acute intracranial finding s. 2. Cervical spondylosis without acute fracture. Reviewed, dictated and finalized at location A. RTISING AGENT IMPRESSION: 1. Large posterior scalp hematoma without underlying fracture or definite acut e intracranial findings. 2. Cervical spondylosis without acute fracture.
--- NOTE | ~2021-08-08 | XR_ITS ---
EXAMINATION: XR chest 1V portable INDICATION: Fall, anemia TECHNIQUE: Portable AP chest at 1517 hours COMPARISON: 07/27/2021 FINDINGS: The lungs are free of acute opacities. There is no pleural effusion or pneumothorax. The ca rdiomediastinal silhouette is normal. IMPRESSION: 1. No acute cardiopulmonary abnormality. Reviewed, dictated and finalized at location F. GRINDING MACHINE OPERATOR
--- NOTE | ~2021-08-08 | XR_ITS ---
EXAMINATION: XR hip LT 2V w AP pelvis, XR femur LT min 2V EXAM DATE: 08/09/2021 03:37 INDICATION: Hematoma, fall TECHNIQUE: Left hip frontal, crosstable lateral projections for interpretation. Frontal projection pe lvis. Left femur frontal and lateral projections of the proximal aspect, frontal and lateral projecti ons of the lower aspect for review. Comparison is made to prior examination from 09/05/2019. Correlati on was made with CT obtained 08/09/2021. FINDINGS: There is impacted left subcapital femoral neck fracture. Patient did have an acute fracture in 2019, however there appears be more impaction today. The pelvic ring appears intact. Left femoral shaft is unremarkable. IMPRESSION: Impacted left femoral neck fracture, was fractured and 2019 but without impaction. Can't confirm or exclude acute component. CT also inconclusive. Consider noncontrast MRI left hip for furt her evaluation. Initially interpreted as no acute findings. I discussed fracture with Dr. Menchaca at 08/09/2021 13:42 CS T. Reviewed, dictated and finalized at location A. ENTER GENERAL IMPRESSION: Impacted left femoral neck fracture, was fractured and 2019 but wi thout impaction. Can't confirm or exclude acute component. CT also inconclusive . Consider noncontrast MRI left hip for further evaluation. Initially interpreted as no acute findings. I discussed fracture with Dr. Menchaca at 08/09/2021 13:42 [facility].
[2021-08-08 21:53] VITALS: BP 129/108; PULSE 128; RESP 19; TEMP 36.2; O2SAT 97
[2021-08-08] MEDS: LORazepam INJ (*CRX) 2 MG/ML VIAL 0.5 MG IV PUSH (22:27)
[2021-08-08] MEDS: HALOPERIDOL LACTATE 5 MG/ML VIAL IM (22:28)
--- NOTE | 2021-08-08 22:33 | ED.FALL ---
HPI - Fall General Chief Complaint: Fall <Neema Chavarria APRN - Last Filed: 08/09/21 03:29> Stated Complaint: fall/ head injury <Neema Chavarria APRN - Last Filed: 08/09/21 03:29> Time Seen by Provider: 08/08/21 21:45 <Neema Chavarria APRN - Last Filed: 08/09/21 03:29> Source: family <Neema Chavarria APRN - Last Filed: 08/09/21 03:29> Mode of arrival: ambulatory <Neema Chavarria APRN - Last Filed: 08/09/21 03:29> Limitations: altered mental status and dementia <Neema Chavarria APRN - Last Filed: 08/09/21 03:29> History of Present Illness HPI Narrative: 80-year-old female brought in by patient's daughter with complaints of fall today. Patient lives in [facility]. Per daughter patient was walking around today and had an unwitnessed fall. Swelling noted to the head, patient unsteady on her feet, patient leaning to the right during ambulation, and patient more altered than normal per daughter. Patient currently alert to self. Patient agitated, walking around the room, and unable to be redirected. <Neema Chavarria APRN - Last Filed: 08/09/21 03:29> Related Data Home Medications: Home Medications Medication Instructions Recorded Confirmed cholecalciferol (vitamin D3) 1,000 unit PO DAILY 09/05/19 09/05/19 [Vitamin D3] escitalopram oxalate 20 mg PO DAILY 09/05/19 09/05/19 galantamine 24 mg PO DAILY 09/05/19 09/05/19 losartan 50 mg PO DAILY 09/05/19 09/05/19 omega-3 fatty acids-fish oil [Fish 2 cap PO DAILY 09/05/19 09/05/19 Oil] quetiapine 25 mg tablet 25 mg PO BID 07/21/20 <Neema Chavarria APRN - Last Filed: 08/09/21 03:29> Allergies/Adverse Reactions: Allergies Allergy/AdvReac Type Severity Reaction Status Date / Time latex Allergy Rash Verified 10/06/20 16:17 morphine AdvReac Intermediate Agitated Verified 10/06/20 16:17 <Neema Chavarria APRN - Last Filed: 08/09/21 03:29> Review of Systems Review of Systems: ROS unobtainable: Yes unobtainable due to mental status <Neema Chavarria APRN - Last Filed: 08/09/21 03:29> [facility] Past Medical History Medical History: Medical History (Updated 08/10/21 @ 00:00 by Penelope Arnold) BCC (basal cell carcinoma of skin) Dementia HLD (hyperlipidemia) HTN (hypertension) Ovarian cancer 2000 status post hysterectomy with bilateral salpingo-oophorectomy and chemotherapy Right radial fracture UTI (urinary tract infection) <Neeam Chavarria APRN - Last Filed: 08/09/21 03:29> Surgical History Surgical History: Surgical History Enterostomy To retrieve gallstone that was causing small bowel obstruction March 2011 History of hysterectomy for cancer Due to ovarian cancer in 2000 Hx of cholecystectomy Hx of tonsillectomy Normal colonoscopy The patient had a distant history of colon polyps but her most recent colonoscopy in 2014 was unremarkable <Neema Chavarria APRN - Last Filed: 08/09/21 03:29> Family History Family History: Family History Mother Lung cancer Carcinoma of colon Father Heart disease Hypertension Daughter Thyroid cancer <Neema Chavarria APRN - Last Filed: 08/09/21 03:29> Social History Social History: Social History Social History: Primary care physician: Dr. Eliot Reeves (per [facility] records) Code status: DNR Smoking status: Never smoker Second hand tobacco smoke exposure: No Alcohol intake: never Substance use: never Additional living arrangements comments: Patient resides at [facility]. She is . 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 Gender identity (if verbalized by the patient): Female Spiritual care concerns: No Agree to blood products: Yes <Cosme
[2021-08-08 22:51] LABS: Alanine Aminotransferase 15 U/L (4-35); Alkaline Phosphatase 105 U/L (38-126); Anion Gap 3 mmol/L (8-16); Aspartate Amino Transferase 45 U/L (14-36); Bilirubin,Total 1.1 mg/dL (0.2-1.3); Blood Urea Nitrogen 30 mg/dL (7-17); Calcium 8.8 mg/dL (8.4-10.2); Carbon Dioxide 30 mmol/L (22-30); Chloride 105 mmol/L (98-107); Estimated Glomerular Filt Rate 60; Glucose 116 mg/dL (65-110); Potassium 4.7 mmol/L (3.4-5.0); Sodium 138 mmol/L (137-145)
[2021-08-08 23:33] LABS: Basophils Percent Auto 0.1 % (0.2-1.2); Eosinophils Percent Auto 0.4 % (0-4.4); Hematocrit 23.2 % (37.0-47.0); Hemoglobin 7.3 g/dL (12.0-15.0); Immature Granulocyte Absolute 0.04 K/mm3 (0.00-0.031); Immature Granulocyte Percent A 0.5 % (0-0.5); Lymphocytes Absolute Auto 0.48 K/mm3 (0.9-3.2); Lymphocytes Percent Auto 5.7 % (18.3-44.2); Mean Corpuscular HGB Conc 31.5 g/dl (32-36); Mean Corpuscular Hemoglobin 32.2 pg (26-34); Mean Corpuscular Volume 102.2 fl (80-100); Mean Platelet Volume 9.9 fl (7.4-10.4); Monocytes Absolute Auto 0.9 K/mm3 (0.1-0.6); Monocytes Percent Auto 10.1 % (2.6-8.5); Neutrophils Percent Auto 83.2 % (45.5-73.1); Platelet Count Result 137 k/mm3 (150-375); Red Blood Count 2.27 M/mm3 (4.2-5.4); Red Cell Distribution Width 13.2 % (11.5-14.5); White Blood Count 8.4 K/mm3 (4.5-10.0)
--- NOTE | 2021-08-09 02:58 | ECG_ITS ---
Measurements Intervals [place] Rate: 112 P: 85 NC: 129 QRS: 32 QRSD: 92 T: 55 QT: 338 QTc: 463 Interpretive Statements SINUS TACHYCARDIA BORDERLINE ST ABNORMALITY- INFERIOR LEADS BASELINE ARTIFACT- I, III, AVR, AVL, AVF, V1-V3, V6 ABNORMAL ECG Electronically Signed On 08-09-2021 7:27:20 RN EMERGENCY ROOM by Allen Perez D.O.
[2021-08-09] MEDS: HALOPERIDOL LACTATE 5 MG/ML VIAL IM (03:06)
[2021-08-09 03:17] LABS: SARS-CoV-2 RNA PCR Negative
--- NOTE | 2021-08-09 03:24 | PC.NURSE ---
Assuming care of pt.
[2021-08-09 04:22] LABS: INR 1.2; Prothrombin Time 14.6 Seconds (11.1-14.7)
[2021-08-09 04:23] LABS: Partial Thromboplastin Time 33.1 SECONDS (22.3-36.8)
[2021-08-09 04:25] VITALS: BP 145/78; PULSE 110; RESP 20; TEMP 36.6; O2SAT 95
[2021-08-09 04:35] LABS: Add Urine Microscopic? YES; Appearance Urine Clear (Clear); Bilirubin Urine Negative (Negative); Blood Urine Negative (Negative); Color Urine Yellow (Yellow); Glucose Urine UA Negative (Negative); Ketones Urine Trace mg/dL (Negative); Leukocyte Esterase Ur Negative LEU/UL (Negative); Mucus Urine Rare /lpf; Nitrate Urine Positive (Negative); Protein Urine 1+ mg/dL (Negative); Specific Grav Ur 1.021 (1.001-1.035); Squamous Epithelial Cell Urine Rare /hpf (Few); WBC Urine 0-3 /hpf
[2021-08-09 04:36] VITALS: RESP 20
[2021-08-09 04:42] LABS: Iron 13 ug/dL (37-170)
[2021-08-09 04:51] LABS: Percent Iron Saturation 5 % (20-50)
[2021-08-09 05:27] LABS: Folic Acid 18.5 ng/mL (2.76->20)
[2021-08-09 06:31] VITALS: BP 97/63; PULSE 110; RESP 20; O2SAT 100
[2021-08-09 07:45] VITALS: BP 174/89; PULSE 130; RESP 20; TEMP 37.4; O2SAT 96
[2021-08-09] MEDS: SODIUM CHLORIDE 0.9% IV 1,000 ML 999 ML IV CONT (07:45)
[2021-08-09] MEDS: SODIUM CHLORIDE 0.9% IV 250 ML 30 ML IV CONT (07:45)
--- NOTE | 2021-08-09 07:48 | PC.NURSE ---
[facility] accepted transfer to [facility] 20min trip#[id number]
[2021-08-09 08:00] VITALS: BP 141/65; PULSE 98; RESP 20; TEMP 36.8; O2SAT 99
[2021-08-09] MEDS: LORazepam INJ (*CRX) 2 MG/ML VIAL 0.5 MG IV PUSH (08:00)
[2021-08-09 08:16] VITALS: BP 129/63; PULSE 110; RESP 20; O2SAT 98
== END 2021-08-09 08:30 | disposition short-term general hospital (02) ==
PROVIDERS: General Practice; Nurse Practitioner Family; Emergency Provider Emergency Medicine; PCP Nurse Practitioner Family
DX: S70.02XA Contusion of left hip, initial encounter (principal); S22.5XXA Flail chest, initial encounter for closed fracture; S00.93XA Contusion of unspecified part of head, initial encounter; D64.9 Anemia, unspecified; R41.82 Altered mental status, unspecified; R29.6 Repeated falls; Z20.822 Contact with and (suspected) exposure to COVID-19; F03.90 Unspecified dementia, unspecified severity, without behavioral disturbance, psychotic disturbance, mood disturbance, and anxiety; E78.5 Hyperlipidemia, unspecified; I10 Essential (primary) hypertension; Z85.41 Personal history of malignant neoplasm of cervix uteri; Z87.440 Personal history of urinary (tract) infections; Z85.828 Personal history of other malignant neoplasm of skin; Z66 Do not resuscitate; R00.0 Tachycardia, unspecified; R94.31 Abnormal electrocardiogram [ECG] [EKG]; S22.060A Wedge compression fracture of T7-T8 vertebra, initial encounter for closed fracture; R93.6 Abnormal findings on diagnostic imaging of limbs; M19.021 Primary osteoarthritis, right elbow; M47.812 Spondylosis without myelopathy or radiculopathy, cervical region; W19.XXXA Unspecified fall, initial encounter
CPT/HCPCS: 36415; 36430; 51701; 70450; 71045; 71260; 72125; 73080; 73502; 73552; 74177; 80053; 81001; 82607; 82746; 83540; 83550; 85025; 85610; 85730; 86850; 86900; 86901; 86920; 87077; 87086; 87088; 87186; 93005; 96372; 96374; 96376; 99285; C9803; J1630; J2060; J7030; J7050; P9016; Q9967; U0003; U0005